=== PATIENT | female | born 1950 | race Caucasian/White ===

== ENCOUNTER 2021-09-03 15:46 | Outpatient (CLI) | payer MEDICARE, SELFPAY ==
[2021-09-03 18:06] LABS: Basophils Absolute Auto 0.1 K/mm3 (0.0-0.1); Basophils Percent Auto 1.2 % (0.2-1.2); Eosinophils Absolute Auto 0.5 K/mm3 (0-0.3); Eosinophils Percent Auto 7.2 % (0-4.4); Hematocrit 37.9 % (37.0-47.0); Hemoglobin 12.5 g/dL (12.0-15.0); Immature Granulocyte Absolute 0.02 K/mm3 (0.00-0.031); Immature Granulocyte Percent A 0.3 % (0-0.5); Lymphocytes Absolute Auto 1.52 K/mm3 (0.9-3.2); Lymphocytes Percent Auto 22.2 % (18.3-44.2); Mean Corpuscular Hemoglobin 31.6 pg (26-34); Mean Corpuscular Volume 95.7 fl (80-100); Mean Platelet Volume 8.7 fl (7.4-10.4); Monocytes Absolute Auto 0.5 K/mm3 (0.1-0.6); Monocytes Percent Auto 7.4 % (2.6-8.5); Neutrophils Absolute Auto 4.2 K/mm3 (1.3-6.7); Neutrophils Percent Auto 61.7 % (45.5-73.1); Platelet Count Result 429 k/mm3 (150-375); Red Blood Count 3.96 M/mm3 (4.2-5.4); Red Cell Distribution Width 14.4 % (11.5-14.5); White Blood Count 6.9 K/mm3 (4.5-10.0)
[2021-09-03 18:54] LABS: Iron 81 ug/dL (37-170)
[2021-09-03 18:58] LABS: Alanine Aminotransferase 18 U/L (4-35); Albumin Level 4.7 g/dL (3.5-5.1); Alkaline Phosphatase 81 U/L (38-126); Anion Gap 11 mmol/L (8-16); Aspartate Amino Transferase 24 U/L (14-36); Bilirubin,Total 0.3 mg/dL (0.2-1.3); Blood Urea Nitrogen 14 mg/dL (7-17); Calcium 9.3 mg/dL (8.4-10.2); Carbon Dioxide 23 mmol/L (22-30); Chloride 104 mmol/L (98-107); Cholesterol 229 mg/dL (0-200); Estimated Glomerular Filt Rate > 60; Glucose 101 mg/dL (65-110); HDL Direct 91 mg/dL; Sodium 138 mmol/L (137-145); Triglycerides 84 mg/dL (<150)
[2021-09-03 19:03] LABS: Percent Iron Saturation 23 % (20-50)
[2021-09-03 19:09] LABS: LDL Cholesterol Direct 101 mg/dL
[2021-09-03 20:19] LABS: Vitamin D 25 Hydroxy 50.3 ng/mL
== END 2021-09-03 15:47 | disposition home or self-care (01) ==
PROVIDERS: PCP Family Medicine; Visit Provider Family Medicine
DX: D64.9 Anemia, unspecified (principal); Z51.81 Encounter for therapeutic drug level monitoring; Z79.899 Other long term (current) drug therapy; R79.89 Other specified abnormal findings of blood chemistry
CPT/HCPCS: 36415; 80053; 80061; 82306; 83540; 83550; 85025

== ENCOUNTER 2022-02-19 14:36 | Outpatient (CLI) | payer MEDICARE, SELFPAY ==
--- NOTE | ~2022-02-19 | XR_ITS ---
EXAMINATION: XR lumbar spine 2-3V DATE: 02/19/2022 15:11 INDICATION: Low back pain TECHNIQUE: Anteroposterior and lateral views of the lumbar spine, and cone-down lateral view of the l umbosacral junction were obtained. COMPARISON: None. FINDINGS: Partially visualized bilateral total hip arthroplasties. Malleable plate and screw fixation about the right acetabulum. 45 degree dextroscoliosis measured between T11 and L4. There is diffuse osteopenia which along body habitus and the prominent scoliosis limits assessment of the vertebral body and dis c heights. There is anterior fusion at T9-T10 with approximately 40% relative right-sided height loss of the fused vertebral body. Remaining vertebral body heights appear relatively preserved. There is severe disc height loss at T8-T9, T10-T11, T11-T12, L1-L2 and L4-L5 mild to moderate disc height loss at L3-L4 and mild disc height loss at L4-L5 and L5-S1. The T12-L1 disc space is not clearly profiled . Ankylosis across the right sacroiliac joint. Large amount of stool scattered throughout the colon w hich can be seen with constipation. IMPRESSION: 1. 45 degree thoracolumbar dextroscoliosis with severe spondylosis. 2. 40% right-sided height loss of the fused T9-T10 vertebral bodies which may be developmental. 3. Ankylosis at the right sacroiliac joint. Reviewed, dictated and finalized at location A. IMPRESSION: 1. 45 degree thoracolumbar dextroscoliosis with severe spondylosis. 2. 40% right-sided height loss of the fused T9-T10 vertebral bodies which may b e developmental. 3. Ankylosis at the right sacroiliac joint.
--- NOTE | ~2022-02-19 | XR_ITS ---
XR knee RT 3V 02/19/2022 15:11 Indication: Right knee pain and weakness Procedure: 3 views right knee Comparison: No prior studies for comparison. Findings: No acute fracture or traumatic malalignment. Osteopenia. Severe osteoarthritis, most advanc ed in the lateral compartment. No joint effusion. Loose bodies are present adjacent to the joint spac e. Impression: 1: Severe osteoarthritis of the right knee. Reviewed, dictated and finalized at location A. Impression: 1: Severe osteoarthritis of the right knee.
--- NOTE | ~2022-02-19 | XR_ITS ---
XR knee LT 3V 02/19/2022 15:11 Indication: Left knee pain Procedure: 3 views left knee Comparison: No prior studies for comparison. Findings: There is moderate tricompartment osteoarthritis. Osteopenia. No acute fracture or traumatic malalignment. No significant joint effusion. Impression: 1: Moderate osteoarthritis of the left knee. Reviewed, dictated and finalized at location A. Impression: 1: Moderate osteoarthritis of the left knee.
[2022-02-19 18:38] LABS: Basophils Absolute Auto 0.1 K/mm3 (0.0-0.1); Basophils Percent Auto 0.9 % (0.2-1.2); Eosinophils Absolute Auto 0.4 K/mm3 (0-0.3); Eosinophils Percent Auto 5.8 % (0-4.4); Hematocrit 38.7 % (37.0-47.0); Hemoglobin 12.7 g/dL (12.0-15.0); Immature Granulocyte Absolute 0.02 K/mm3 (0.00-0.031); Immature Granulocyte Percent A 0.3 % (0-0.5); Lymphocytes Absolute Auto 1.32 K/mm3 (0.9-3.2); Lymphocytes Percent Auto 20.2 % (18.3-44.2); Mean Corpuscular HGB Conc 32.8 g/dl (32-36); Mean Corpuscular Hemoglobin 32.3 pg (26-34); Mean Corpuscular Volume 98.5 fl (80-100); Mean Platelet Volume 8.9 fl (7.4-10.4); Monocytes Absolute Auto 0.6 K/mm3 (0.1-0.6); Neutrophils Absolute Auto 4.2 K/mm3 (1.3-6.7); Neutrophils Percent Auto 63.8 % (45.5-73.1); Platelet Count Result 384 k/mm3 (150-375); Red Blood Count 3.93 M/mm3 (4.2-5.4); Red Cell Distribution Width 14.2 % (11.5-14.5); White Blood Count 6.5 K/mm3 (4.5-10.0)
== END 2022-02-19 14:37 | disposition home or self-care (01) ==
PROVIDERS: PCP Family Medicine; Visit Provider Family Medicine
DX: D64.9 Anemia, unspecified (principal); R53.1 Weakness; M17.0 Bilateral primary osteoarthritis of knee; M41.9 Scoliosis, unspecified; M47.817 Spondylosis without myelopathy or radiculopathy, lumbosacral region; M23.41 Loose body in knee, right knee; Z98.1 Arthrodesis status; M43.28 Fusion of spine, sacral and sacrococcygeal region
CPT/HCPCS: 36415; 72100; 73562; 85025

== ENCOUNTER 2022-04-22 14:42 | Outpatient (CLI) | payer MEDICARE, SELFPAY ==
[2022-04-22 18:55] LABS: Appearance Urine Slightly Cloudy (Clear); Bilirubin Urine Negative (Negative); Blood Urine Negative (Negative); Color Urine Yellow (Yellow); Glucose Urine UA Negative (Negative); Ketones Urine Negative (Negative); Leukocyte Esterase Ur Negative LEU/UL (NEGATIVE); Nitrate Urine Negative (Negative); Protein Urine Negative (Negative); Specific Grav Ur 1.015 (1.001-1.035); Urobilinogen Urine 0.2 mg/dL (<2.0); pH Urine 6.5 (5.0-9.0)
[2022-04-22 19:07] LABS: Bacteria Urine Trace /hpf; Mucus Urine Rare /lpf; RBC Urine 0-2 /hpf (0-2); Squamous Epithelial Cell Urine Many /hpf (Few); WBC Urine 0-3 /hpf (0-3)
[2022-04-22 19:14] LABS: Add Urine Microscopic? YES
== END 2022-04-22 14:43 | disposition home or self-care (01) ==
LOC: ANHBWCLAB 14:42
PROVIDERS: PCP Family Medicine; Visit Provider Family Medicine
DX: R44.3 Hallucinations, unspecified (principal); M25.569 Pain in unspecified knee
CPT/HCPCS: 81001

== ENCOUNTER 2022-05-05 13:54 | Outpatient (CLI) | payer MEDICARE, SELFPAY ==
[2022-05-05 19:59] LABS: Hematocrit 36.8 % (37.0-47.0); Hemoglobin 11.9 g/dL (12.0-15.0); Mean Corpuscular HGB Conc 32.3 g/dl (32-36); Mean Corpuscular Volume 98.9 fl (80-100); Mean Platelet Volume 8.7 fl (7.4-10.4); Platelet Count Result 428 k/mm3 (150-375); Red Blood Count 3.72 M/mm3 (4.2-5.4); Red Cell Distribution Width 14.3 % (11.5-14.5); White Blood Count 11.2 K/mm3 (4.5-10.0)
[2022-05-05 20:19] LABS: Alanine Aminotransferase 18 U/L (6-35); Albumin Level 3.9 g/dL (3.5-5.1); Alkaline Phosphatase 86 U/L (38-126); Anion Gap 6 mmol/L (8-16); Aspartate Amino Transferase 22 U/L (14-36); Bilirubin,Total 0.2 mg/dL (0.2-1.3); Blood Urea Nitrogen 25 mg/dL (7-17); Calcium 8.3 mg/dL (8.4-10.2); Carbon Dioxide 28 mmol/L (22-30); Chloride 105 mmol/L (98-107); Estimated Glomerular Filt Rate 55; Glucose 94 mg/dL (65-110); Potassium 3.9 mmol/L (3.4-5.0); Sodium 139 mmol/L (137-145)
== END 2022-05-05 13:55 | disposition home or self-care (01) ==
LOC: ANHBWCLAB 13:57
PROVIDERS: PCP Family Medicine; Visit Provider Family Medicine
DX: R44.3 Hallucinations, unspecified (principal)
CPT/HCPCS: 36415; 80053; 85027